=== PATIENT | female | born 2000 | race Caucasian/White ===

== ENCOUNTER 2021-03-30 11:51 | Inpatient (IN) | payer BC ==
[~2021-03-30] VITALS: Ht 165.1 cm; Wt 75.5 kg
[2021-03-30] MEDS ORDERED: ONDA4TAB7 PO (13:23)
[2021-03-30] MEDS ORDERED: PREN1TAB60 PO (13:23)
[2021-03-30] MEDS ORDERED: PLEASE ENTER HEIGHT AND WEIGHT MC SCH (13:30)
[2021-03-30 13:47] LABS: BASOPHILS % (AUTO) 1 % (0-1); EOSINOPHILS % (AUTO) 0 % (1-7); LYMPHOCYTES % (AUTO) 10 % (22-44); MEAN CORPUSCULAR HEMOGLOBIN 30.9 pg (27.0-34.8); MEAN CORPUSCULAR HGB CONC 34.2 g/dL (32.4-35.8); MEAN PLATELET VOLUME 9.3 fL (7.4-10.4); MONOCYTES % (AUTO) 3 % (2-9); NEUTROPHILS % (AUTO) 87 % (42-75); PLATELET COUNT 342 x10^3/uL (130-400); RED BLOOD COUNT 4.21 x10^6/uL (3.82-5.3); RED CELL DISTRIBUTION WIDTH 12.6 % (9.6-15.2)
[2021-03-30 13:58] LABS: ALANINE AMINOTRANSFERASE 12 U/L (12-78); ALBUMIN 3.1 g/dL (3.4-5.0); ANION GAP 9 mmol/L (5-15); CALCIUM 8.3 mg/dL (8.5-10.1); CHLORIDE 105 mmol/L (98-107); CREATININE 0.64 mg/dL (0.55-1.02)
[2021-03-30 14:00] LABS: ALKALINE PHOSPHATASE 123 U/L (45-117); BILIRUBIN,TOTAL 0.2 mg/dL (0.2-1.0); TOTAL PROTEIN 7.5 g/dL (6.4-8.2)
[2021-03-30] MEDS ORDERED: ONDANSETRON 2MG/ML, 2ML IVPush PRN (14:00)
[2021-03-30] MEDS: D5%-LACTATED RINGERS 1,000 ML IV SCH ×2 (14:00→22:00)
[2021-03-30] MEDS ORDERED: OXYTOCIN 30U/ 0.9% NaCL 500ML 500 ML IV SCH (14:00)
[2021-03-30] MEDS ORDERED: MAGNESIUM SULF. PMX 20GM/500ML 500 ML IV SCH (14:00)
[2021-03-30] MEDS ORDERED: LACTATED RINGERS 1,000 ML IV SCH (14:00)
[2021-03-30] MEDS ORDERED: TERBUTALINE 1 MG/ML, 1ML IVPush PRN (14:00)
[2021-03-30] MEDS ORDERED: FENTANYL PF 100 MCG/2ML IVPush PRN (14:00)
[2021-03-30] MEDS ORDERED: TERBUTALINE 1 MG/ML, 1ML SQ PRN (14:00)
[2021-03-30 14:02] LABS: MD SCAN
[2021-03-30 14:07] VITALS: BP 123/82
[2021-03-30] MEDS ORDERED: NEWBORN KIT ONE (14:45)
[2021-03-30] MEDS: PENICILLIN GK 2,500,000 UNITS in DEXTROSE 5% 100 ML IVPB SCH ×2 (15:00→19:04)
[2021-03-30] MEDS ORDERED: MISOPROSTOL 200 MCG TABLET ONE (15:17)
[2021-03-30] MEDS ORDERED: LIDOCAINE 1%, 20ML ONE (15:17)
[2021-03-30] MEDS: LACTATED RINGERS 1,000 ML IV SCH ×3 (15:36→22:00)
[2021-03-30] MEDS ORDERED: EPHEDRINE 50 MG/ML, 1ML IVPush PRN (16:00)
[2021-03-30] MEDS ORDERED: FENTANYL/BUPIV./NS/PF 250 ML EPIDCONT SCH (16:00)
[2021-03-30] MEDS ORDERED: LACTATED RINGERS 1,000 ML IVBOLUS PRN (16:00)
[2021-03-30] MEDS ORDERED: NALOXONE 0.4 MG/ML, 1ML IVPush PRN (16:00)
[2021-03-30] MEDS ORDERED: BUPIVACAINE 0.25% ONE (16:07)
[2021-03-30] MEDS ORDERED: LIDOCAINE/PF 1.5% EPI 1:200K, 10 ML ONE (16:08)
[2021-03-30] MEDS ORDERED: SIMETHICONE 80 MG CHEW TAB PO PRN (22:30)
[2021-03-30] MEDS ORDERED: ONDANSETRON 2MG/ML, 2ML IV PRN (22:30)
[2021-03-30] MEDS ORDERED: ACETAMINOPHEN 325 MG TABLET PO PRN (22:30)
[2021-03-30] MEDS ORDERED: METHYLERGONOVINE 0.2 MG/ML IM PRN (22:30)
[2021-03-30] MEDS ORDERED: IBUPROFEN 600 MG TABLET PO PRN (22:30)
[2021-03-30] MEDS ORDERED: BISACODYL 10 MG SUPP PR PRN (22:30)
[2021-03-30] MEDS ORDERED: OXYcodone/APAP 5/325MG TABLET PO PRN (22:30)
[2021-03-30] MEDS: OXYTOCIN 30U/ 0.9% NaCL 500ML 500 ML IV SCH (22:30)
[2021-03-31 00:15] VITALS: BP 115/73
[2021-03-31 04:30] VITALS: BP 97/60
[2021-03-31 05:29] LABS: BASOPHILS % (AUTO) 1 % (0-1); EOSINOPHILS % (AUTO) 0 % (1-7); LYMPHOCYTES % (AUTO) 9 % (22-44); MEAN PLATELET VOLUME 8.8 fL (7.4-10.4); MONOCYTES % (AUTO) 10 % (2-9); NEUTROPHILS % (AUTO) 80 % (42-75); PLATELET COUNT 324 x10^3/uL (130-400); RED CELL DISTRIBUTION WIDTH 12.3 % (9.6-15.2)
[2021-03-31 05:56] LABS: MD SCAN
[2021-03-31] MEDS: LACTATED RINGERS 1,000 ML IV SCH ×5 (06:00→16:00)
[2021-03-31 07:10] VITALS: BP 101/71
[2021-03-31] MEDS: OXYTOCIN 30U/ 0.9% NaCL 500ML 500 ML IV SCH ×2 (08:23→18:30)
[2021-03-31] MEDS: PRENATAL VIT/IRON/FA 1 EACH TABLET PO SCH (08:24)
[2021-03-31] MEDS: DOCUSATE 100 MG CAPSULE PO PRN (08:24)
[2021-03-31] MEDS ORDERED: BETAMETHASONE 6 MG/ML, 5ML IM ONE (11:00)
[2021-03-31 12:00] VITALS: BP 105/71
[2021-03-31 16:30] VITALS: BP 112/79
[2021-03-31 19:07] VITALS: BP 103/68
[2021-04-01] MEDS: OXYTOCIN 30U/ 0.9% NaCL 500ML 500 ML IV SCH ×2 (04:30→14:30)
[2021-04-01 07:14] VITALS: BP 98/70
[2021-04-01] MEDS: PRENATAL VIT/IRON/FA 1 EACH TABLET PO SCH (07:14)
[2021-04-01] MEDS: DOCUSATE 100 MG CAPSULE PO PRN (07:14)
== END 2021-04-01 20:53 | disposition home or self-care (01) | DRG 805 ==
LOC: LDIP 12:58 → 2NW 03-31 00:03
PROVIDERS: ADMIT Obstetrics & Gynecology Maternal & Fetal Medicine; ATTEND Obstetrics & Gynecology Maternal & Fetal Medicine
PROC: 10E0XZZ Delivery of Products of Conception, External Approach (ICD-10-PCS; principal; 2021-03-30)
PROC: 0HQ9XZZ Repair Perineum Skin, External Approach (ICD-10-PCS; 2021-03-30)
PROC: 3E0R3BZ Introduction of Anesthetic Agent into Spinal Canal, Percutaneous Approach (ICD-10-PCS; 2021-03-30)
PROC: 00HU33Z Insertion of Infusion Device into Spinal Canal, Percutaneous Approach (ICD-10-PCS; 2021-03-30)
DX: O42.913 Preterm premature rupture of membranes, unspecified as to length of time between rupture and onset of labor, third trimester (principal); O60.14X0 Preterm labor third trimester with preterm delivery third trimester, not applicable or unspecified; Z37.0 Single live birth; O70.0 First degree perineal laceration during delivery; Z3A.34 34 weeks gestation of pregnancy; Z20.822 Contact with and (suspected) exposure to COVID-19
CPT/HCPCS: 36415; 80053; 83735; 85025; 86592; 86850; 86900; 87635; 88305; G0378; J2405; J2540; J3010; J7120